=== PATIENT | male | born 1965 | race Caucasian/White ===

== ENCOUNTER 2024-05-09 08:51 | Outpatient (AMB) | payer OTHER, SELFPAY ==
--- NOTE | 2024-05-09 08:53 | A.OFFVIS_ITS ---
Vital Signs 3 05/09/24 08:55 Height 6 ft Weight 202 lb BMI 27.4 BP 166/90 H Blood Pressure Location Lt brachial Position Sitting Respiration 15 Pulse 63 Pulse Source Pulse Oximeter Pulse Oximetry (%) 98 Oxygen Delivery Method Room Air Intake Visit Reasons: Back pain/R Leg pain Allergies No Known Allergies Allergy (Verified 05/09/24 08:56) Medication List - Last Reconciled 05/09/24 by Maria Victoria Cruz LPN acetaminophen 325 mg PO QID PRN amlodipine 2.5 mg PO DAILY aspirin 81 mg PO DAILY atorvastatin 40 mg PO DAILY ibuprofen 200 mg PO Q6H PRN losartan 100 mg PO DAILY oxycodone ER (OxyContin) 10 mg PO BID pregabalin 25 mg PO BID HPI Comments Details: Haris is a very pleasant 59-year-old male who presented to the office today for evaluation and management of his chronic lower back pain Patient reports he has been suffering with this pain since 2018. Pain started after refill of a ladder landing on his heels and fracturing thoracic vertebrae. Today is main complaint is right lower back pain with radiation down the right leg to the foot He reports his thoracic back pain has been stable in his not the most concerning pain. He is more bothered by the pain going down his right leg Patient is status post L5-S1 [place] [address] Piña. He reports that the right leg pain has persisted since and is only getting worse He denies any recent attempts at physical therapy, acupuncture, chiropractor or massage. He does endorse some numbness and tingling of the right leg Denies right leg weakness Denies red flag symptoms including loss of bowel, bladder or saddle anesthesia. Currently taking Tylenol and ibuprofen daily without improvement of his symptoms. Minimal improvement with lidocaine patches, heat, ice Currently taking oxycodone prescribed by his PCP. This week he was started on Lyrica but has not been on it long enough to notice an improvement. Patient is not interested in any injections. Recent x-ray was reviewed, results as per below Pain today is rated as an 8/10, constant and worse at the end of the day In terms of muscle damage condition is described as pinching, cramping, crushing, tiring, spreading, piercing, radiating, tight, squeezing, stabbing, tingling Pain is negatively impacting patient's enjoyment of life, general activity, mood, sleep, ability to perform activities of daily living, work, normal functioning PFSH Medical History (Updated 05/09/24 @ 16:06 by Dominique Apple APRN, [facility]) Chronic cough Hypertension Hyperlipidemia Surgical History (Updated 05/09/24 @ 16:05 by Dominique Apple APRN, [facility]) History of discectomy Review of Systems Const All systems reviewed & are unremarkable except as noted in HPI and below Physical Exam Vital Signs: Last Vital Signs Pulse 63 05/09/24 08:55 Resp 15 05/09/24 08:55 BP 166/90 H 05/09/24 08:55 Pulse Ox 98 05/09/24 08:55 Oxygen Delivery Method Room Air 05/09/24 08:55 BMI result Body Mass Index 27.4 General: awake, alert, oriented. Answers questions appropriately. Fully engaged in examination. Skin: warm, dry, intact HEENT: Normocephalic. Hearing intact. Cardiac: External chest normal in appearance. Respiratory: No cough, audible wheezing or stridor. Abdomen: without gross distension. MS: No obvious swelling or deformities. Able to stand on bilateral tiptoes and bilateral heels.? Able to transition from sit to stand unassisted. Ambulates with bilaterally normal heel strike and toe off SLR positive on the right Minimally tender over thoracic vertebrae and paraspinal muscles Minimally tender over lumbar vertebrae and paraspinal muscles Nontender for bilateral PSIS Valsalva negative Negative footdrop, negative clonus Facet loading positive Neurological: Oriented to person, place, time and situation. Thought process intact. No gait abnormalities appreciated. Psychiatric: Appropriate mood and affect. Good judgment and insight. Results Reviewed Results Reviewed: 01/17/2024 Assessment & Plan Assessment & Plan (1) Chronic back pain: Code(s): M54.9 - Dorsalgia, unspecified; G89.29 - Other chronic pain Category: Medical (2) Cervical post-laminectomy syndrome: Code(s): M96.1 - Postlaminectomy syndrome, not elsewhere classified Category: Medical (3) Compression fracture of T8 vertebra: Code(s): S22.060A - Wedge compression fracture of T7-T8 vertebra, initial encounter for closed fracture Category: Medical (4) Lumbar radiculopathy: Code(s): M54.16 - Radiculopathy, lumbar region Category: Medical (5) Chronic, continuous use of opioids: Code(s): F11.90 - Opioid use, unspecified, uncomplicated Category: Medical (6) Lumbar spondylosis: Code(s): M47.816 - Spondylosis without myelopathy or radiculopathy, lumbar region Category: Medical Plan Patient presented to the office today for evaluation management of his chronic lower back pain History, physical exam and provocative testing consistent with post-laminectomy syndrome, lumbar radiculopathy, lumbar spondylosis Order placed for PT eval and treat Continue with Tylenol, ibuprofen and prescription medications as needed Patient will follow-up after PT, if no improvement plan for MRI thoracic and lumbar spine All questions and concerns were answered, patient agrees with the plan. Follow up after PT, sooner if needed Orders: Orders 2 PT Evaluation and Treatment Today M54.9 - Dorsalgia, unspecified Coding Level of Care Code New Pt Level 4 (78689) Complex EM visit Add On G2211 Diagnoses Chronic back pain M54.9; G89.29 Cervical post-laminectomy syndrome M96.1 Compression fracture of T8 vertebra S22.060A Lumbar radiculopathy M54.16 Chronic, continuous use of opioids F11.90 Lumbar spondylosis M47.816
[2024-05-09 08:55] VITALS: BP 166/90; PULSE 63; RESP 15; O2SAT 98; BMI 27.4
== END 2024-05-09 09:51 | disposition home or self-care (01) ==
PROVIDERS: PCP Registered Nurse; Visit Provider Registered Nurse Emergency
DX: G89.29 Other chronic pain (principal); M54.9 Dorsalgia, unspecified; M96.1 Postlaminectomy syndrome, not elsewhere classified; Z79.891 Long term (current) use of opiate analgesic; S22.060A Wedge compression fracture of T7-T8 vertebra, initial encounter for closed fracture; M54.16 Radiculopathy, lumbar region; M47.816 Spondylosis without myelopathy or radiculopathy, lumbar region
CPT/HCPCS: 99204